=== PATIENT | male | born 1960 | race Caucasian/White ===

== ENCOUNTER 2024-11-14 15:47 | Emergency (ER) | payer MEDICAID, SELFPAY ==
[2024-11-14 15:55] VITALS: BP 170/98; BP 200/100; PULSE 81; PULSE 84; RESP 16; TEMP 36.6; O2SAT 95; O2SAT 98; BMI 32.0
[2024-11-14 16:41] LABS: MANUAL DIFF FLAG NO
[2024-11-14 16:43] LABS: Basophils Percent Auto 0.3 % (0-2); Eosinophils Percent Auto 0.6 % (0-4); Hematocrit 39.7 % (42.0-52.0); Hemoglobin 13.9 g/dl (14.0-18.0); Imm Gran Abs Auto 0.02 X10*3/uL (0.00-0.03); Imm Gran Pct Auto 0.3 % (0.0-0.4); Lymphocytes Absolute Auto 1.5 X10*3/uL (1.2-4.9); Mean Corpuscular Hemoglobin 30.2 pg (27.0-33.0); Mean Corpuscular Volume 86.3 fL (80.0-98.0); Mean Platelet Volume 9.6 fL (9.4-12.4); Monocytes Absolute Auto 0.4 X10*3/uL (0.1-1.2); Monocytes Percent Auto 6.5 % (2-11); Neutrophils Absolute Auto 4.4 x10*3/uL (2.0-8.3); Neutrophils Percent Auto 68.3 % (45-73); Platelet Count 228 X10*3/uL (160-400); Red Cell Distribution Width 12.1 % (11.0-16.0); White Blood Count 6.4 X10*3/uL (4.8-10.8)
[2024-11-14 17:03] LABS: Alanine Aminotransferase 36 U/L (0-40); Albumin Level 4.1 g/dL (3.5-5.0); Alkaline Phosphatase 114 U/L (39-117); Anion Gap 12 (12-20); Aspartate Amino Transferase 20 U/L (5-37); Bilirubin Total 0.6 mg/dL (0.0-1.0); Blood Urea Nitrogen 14 mg/dL (9-16); Calcium 9.6 mg/dL (8.4-10.2); Carbon Dioxide 23 mmol/L (22-29); Chloride 108 mmol/L (96-108); Creatinine Clr Calc Pharmacy 72.4; Estimated Glomerular Filt Rate 58; Glucose Random 333 mg/dL (60-115); Potassium 4.6 mmol/L (3.3-5.1); Sodium 138 mmol/L (135-145); Total Protein 7.7 g/dL (6.5-8.0)
[2024-11-14 18:57] VITALS: BP 158/100; PULSE 76; RESP 16; O2SAT 96
[2024-11-14 19:58] VITALS: BP 188/110; BP 192/112; PULSE 81; PULSE 86
[2024-11-14 19:59] VITALS: BP 180/110; PULSE 98
--- NOTE | 2024-11-14 21:54 | ED.GENADULT ---
HPI - General Adult General Chief complaint: General Medical Stated complaint: L SIDE WEAK, NOT TAKING MEDS PER EMS Time Seen by Provider: 11/14/24 21:50 Source: patient Mode of arrival: ambulatory Limitations: no limitations History of Present Illness ED Provider: HPI narrative: Patient's history of diabetes comes here for elevated blood pressure and elevated blood sugar and dizziness patient has not taken his medication for more than 6 months blood sugar on arrival was 333mg no focal weakness patient ambulatory for medication repeat blood sugar was 243 and blood pressure was 145/100 Related Data Previous Rx's ?Medication ?Instructions ?Recorded blood pressure monitor (Blood #1 ea 11/14/24 Pressure Kit) blood-glucose meter #1 ea 11/14/24 losartan 50 mg tablet 50 mg PO DAILY #90 tabs 11/14/24 metformin 850 mg tablet 850 mg PO BID #180 tabs 11/14/24 Allergies Allergy/AdvReac Type Severity Reaction Status Date / Time No Known Allergies Allergy Verified 11/14/24 16:03 Review of Systems Review of Systems: Yes all other systems are reviewed and are negative [facility] Social History Social History Smoked in Last 30 Days: No Use of substances other than those prescribed or required for medical reasons: No Advance Directives: No Advance Directives Information Provided: No Physical Exam ED Vital Signs: Vital Signs - 24 hr 11/14/24 15:55 11/14/24 18:57 11/14/24 19:58 Temperature 97.8 F Pulse Rate 81 76 81 Respiratory Rate 16 16 Blood Pressure 170/98 H 158/100 H 188/110 H Pulse Oximetry 95 96 Oxygen Delivery Method Room Air Room Air 11/14/24 19:58 11/14/24 19:59 11/14/24 22:26 Temperature 98.1 F Pulse Rate 86 98 90 Respiratory Rate 15 Blood Pressure 192/112 H 180/110 H 145/100 H Pulse Oximetry 97 Oxygen Delivery Method Room Air 11/14/24 22:38 Temperature 98.1 F Pulse Rate 90 Respiratory Rate 15 Blood Pressure 145/100 H Pulse Oximetry 97 Oxygen Delivery Method Room Air BMI result Body Mass Index 32.0 Appearance: Alert. Oriented X3. No acute distress. Eyes: PERRLA, No Nystagmus ENT: Pharynx normal. Oral Mucosa moist Neck: Normal inspection. Neck supple. CVS: Normal heart rate and rhythm. Pulses normal. Respiratory: No respiratory distress. Equal air entry bilateral, no wheezing/rales/rhonchi Abdomen: Soft and nontender. Bowel sounds are present, no mass palpable, no CVA tenderness Skin: Skin warm and dry. Normal skin color. Normal skin turgor. Extremities: No lower extremity edema. No calf tenderness Neuro: Oriented X 3. No motor deficit. No sensory deficit.No cerebellar signs , cranial nerves II-XII intact Medications Administered Discontinued Medications Generic Name Dose Route Start Last Admin Trade Name Freq PRN Reason Stop Dose Admin Losartan Potassium 50 mg 11/14/24 22:21 11/14/24 22:33 Losartan Potassium 50 Mg Tablet PO 11/14/24 22:22 50 mg ONCE ONE Administration Protocol Metformin HCl 850 mg 11/14/24 22:21 11/14/24 22:33 Metformin Hcl 850 Mg Tablet PO 11/14/24 22:22 850 mg ONCE ONE Administration Medical Decision Making Medical Decision Making [facility] Narrative: Patient noncompliant to his medication with history of diabetes noted to have high blood pressure also patient has not seen PCP for a while will start patient on losartan advised to continue metformin follow with PCP Lab Data [facility] Lab Attestation statement: I reviewed the patient's lab results. 11/14/24 16:38 11/14/24 16:38 Labs: Lab Results 11/14/24 11/14/24 Range/Units 16:38 22:02 WBC 6.4 (4.8-10.8) X10*3/uL RBC 4.60 (4.60-5.80) X10*6/uL Hgb 13.9 L (14.0-18.0) g/dl Hct 39.7 L (42.0-52.0) % MCV 86.3 (80.0-98.0) fL MCH 30.2 (27.0-33.0) pg MCHC 35.0 (31.0-36.0) g/dl RDW 12.1 (11.0-16.0) % Plt Count 228 (160-400) X10*3/uL MPV 9.6 (9.4-12.4) fL Immature Gran % (Auto) 0.3 (0.0-0.4) % Neut % (Auto) 68.3 (45-73) % Lymph % (Auto) 24.0 (20-40) % Hutchinson % (Auto) 6.5 (2-11) % Eos % (Auto) 0.6 (0-4) % Baso % (Auto) 0.3 (0-2) % Lymph # (Auto) 1.5 (1.2-4.9) X10*3/uL Hutchinson # (Auto) 0.4 (0.1-1.2) X10*3/uL Eos # (Auto) 0.0 (0.0-0.4) X10*3/uL Baso # (Auto) 0.0 (0.0-0.2) X10*3/uL Abs Immat Gran (auto) 0.02 (0.00-0.03) X10*3/uL Absolute Neuts (auto) 4.4 (2.0-8.3) x10*3/uL Absolute Nucleated RBC 0.000 (0.0-0.012) X10*3/uL Nucleated RBC % (auto) 0.0 (0.0-0.2) /100WBC Sodium 138 (135-145) mmol/L Potassium 4.6 (3.3-5.1) mmol/L Chloride 108 (96-108) mmol/L Carbon Dioxide 23 (22-29) mmol/L Anion Gap 12 (12-20) BUN 14 (9-16) mg/dL Creatinine 1.26 (0.5-1.4) mg/dL Estim Creat Clear Calc 72.4 Estimated GFR 58 POC Glucose 243 H (60-115) mg/dL Random Glucose 333 H (60-115) mg/dL Calcium 9.6 (8.4-10.2) mg/dL Total Bilirubin 0.6 (0.0-1.0) mg/dL AST 20 (5-37) U/L ALT 36 (0-40) U/L Alkaline Phosphatase 114 (39-117) U/L Total Protein 7.7 (6.5-8.0) g/dL Albumin 4.1 (3.5-5.0) g/dL Discharge Plan Discharge Clinical Impression: Hypertension, Diabetes mellitus Patient Disposition: Home, Self-Care Instructions: Heart Healthy Diet (ED), How to Take a Blood Pressure (ED), Hypertension (ED), Type 2 Diabetes Management for Adults (ED) Additional Instructions: Decrease salt intake Diet as advised for diabetes Start taking the medication as prescribed Follow up with your PCP Prescriptions: New metformin 850 mg tablet 850 mg PO BID Qty: 180 3RF losartan 50 mg tablet 50 mg PO DAILY Qty: 90 3RF (DME) blood-glucose meter Kit See Rx Instructions .Route Qty: 1 0RF Rx Instructions: As directed (DME) blood pressure monitor [Blood Pressure Kit] Kit See Rx Instructions .Route Qty: 1 0RF Rx Instructions: As directed Interventions: ED Discharge Assessment Last Done: 11/14/24 22:38 Discharge Date/Time: 11/14/24 22:38 Print Language: Italian
[2024-11-14 22:06] LABS: Glucose, Whole Blood 243 mg/dL (60-115)
[2024-11-14 22:26] VITALS: BP 145/100; PULSE 90; RESP 15; TEMP 36.7; O2SAT 97
[2024-11-14] MEDS: metFORMIN HCl 850 MG TABLET PO (22:33)
[2024-11-14] MEDS: Losartan Potassium 50 MG TABLET PO (22:33)
[2024-11-14 22:38] VITALS: BP 145/100; PULSE 90; RESP 15; TEMP 36.7; O2SAT 97
== END 2024-11-14 22:38 | disposition home or self-care (01) ==
PROVIDERS: Emergency Provider Internal Medicine
DX: E11.65 Type 2 diabetes mellitus with hyperglycemia (principal); I10 Essential (primary) hypertension; R42 Dizziness and giddiness; Z79.84 Long term (current) use of oral hypoglycemic drugs; Z79.899 Other long term (current) drug therapy
CPT/HCPCS: 36415; 80053; 82947; 85025; 99283; 99284

== ENCOUNTER → 2024-12-18 14:57 | Outpatient (REF) | payer MEDICAID, SELFPAY ==
--- NOTE | 2024-12-18 15:00 | CA_ITS ---
Transthoracic Echocardiogram Patient (Last, First, Middle): Kings Elkins, Gender: Male Date of : 1960 Age: 64 Procedure Date: 12/18/2024 Procedure Type: Transthoracic Echocardiogram Location: OP Height: 177.8 cm Weight: 90.72 kg BSA: 2.09 m2 Heart Rate: 86 bpm BP: 150 / 88 mmHg Baked And Graphite Inspector: SHAR Referring MD: Luciana Badillo NP Educational Administrator: Derek Machado MD Symptoms: HTN I10 HX CRUZ DM Study Quality: Adequate w contrast ECG Rhythm: Sinus Conclusions: - 1. Normal LV ejection fraction of 65-70% with moderate asymmetric septal hypertrophy 2. Normal cardiac valvular Dopplers 3. No gross pericardial effusion Findings Procedure Information Contrast agent, definity, is being given per protocol without apparent complications. The quality of the study was technically difficult. The study quality is limited by lung artifact. Left Ventricle Normal left ventricular size, thickness, and systolic function. The visually estimated ejection fraction is between 65-70%. Spectral Doppler is indicative of a normal filling pattern. There is moderate septal asymmetric hypertrophy. Right Ventricle Normal right ventricular cavity size and systolic function. Atria The left atrium is normal in size. There is no evidence of interatrial shunt. The right atrium is normal in size. Aortic Valve Normal aortic valve structure and function. There is no aortic valve stenosis. There is no aortic valve regurgitation. Mitral Valve Normal mitral valve structure and function. There is trace mitral valve regurgitation. There is no mitral valve stenosis. Pulmonic Valve The pulmonic valve was not well visualized. Tricuspid Valve Likely normal tricuspid valve structure and function. Tricuspid regurgitation envelope is inadequate for calculation of right ventricular systolic pressure. Normal right atrial pressure. Great Vessels All visible segments of the aorta are normal in size. The pulmonary artery was not well visualized. There is no dilatation of the ascending aorta measuring 3.40 cm. Venous The inferior vena cava is normal in size and collapses greater than 50% with inspiration. Pericardium/Pleural There is no evidence of pericardial effusion. Prior Study Comparison No prior study available for comparison. Measurements 2D Linear Measurements IVSd: 1.63 0.6-0.9/0.6-1.0 cm LVIDd: 3.40 3.9-5.3/4.2-5.9 cm LVIDd Index: 1.63 2.4-3.2/2.2-3.1 cm/m2 LVIDs: 2.55 2.0-3.6 cm LVPWd: 1.04 0.7-1.1 cm LA Diam: 3.10 2.7-3.8/3.0-4.0 cm LAIDs Index: 1.48 1.5-2.3 cm/m2 LV Mass: 168.08 67-162/88-224 g LV Mass Index: 80.42 43-95/49-115 g/m2 LVOT Diam: 2.00 3.0+(-)1.3 cm 2D Systolic Function EF 4C: 77.60 >55% EF 2C: 67.70 >55% EF BiP: 73.80 >55% Mitral Valve MV Pk E: 0.47 MV PK A: 0.65 MV Decel Time: 252.00 E/A: 0.70 E'Lateral: 7.83 E'Medial: 3.59 E/E' Med: 13.00 E/E' Lat: 6.00 PHT: 74.00 MVA PHT: 2.97 Decel Foard: 1.85 Aortic Valve AoV Pk Waqas: 1.18 AoV Pk Grad: 6.00 NATHANIEL: 2.96 LVOT LVOT Pk Waqas: 1.19 LVOT Mn Waqas: 0.93 LVOT VTI: 0.21 LVOT Pk Grad: 6.00 LVOT Mn Grad: 4.00 LVOT Diam: 2.00 LVOT Area: 3.14 Diastolic Function MV Pk E: 0.47 MV Pk A: 0.65 E/A: 0.70 E'Medial: 3.59 E/E' Med: 13.00 E' Laterial: 7.83 E/E' Lat: 6.00 Right Ventricle TAPSE (mm): 18.50 TVS' Waqas: 12.20 Great Vessels Aorta Sinus of Valsalva: 3.70 2.0-3.5 cm Ao Asc: 3.40 2.1-3.4 cm Ao Arch: 3.00 Pulmonary Veins Pulm Vein S/D 1.90 Pulmonary Valve PV Pk Waqas: 1.07 Peak PV Grad: 5.00 Updated in Other Vendor System with Status of Final Derek Machado MD electronically signed on 12/19/2024 11:30:14 AM with status of Final
== END ==
LOC: HO.CARD 14:57
PROVIDERS: Visit Provider Nurse Practitioner Family
DX: I10 Essential (primary) hypertension (principal); R06.09 Other forms of dyspnea
CPT/HCPCS: 93306; Q9957

== ENCOUNTER → 2024-12-18 15:00 | Outpatient (BNV) | payer MEDICAID, SELFPAY | PROVIDERS: Visit Provider Internal Medicine Cardiovascular Disease | DX: I42.2 Other hypertrophic cardiomyopathy (principal) | CPT/HCPCS: 93306 ==